=== PATIENT | male | born 1990 | race Two or more races ===

== ENCOUNTER → 2020-02-11 17:31 | Outpatient (CLI) | payer OTHER | END | disposition home or self-care (01) | LOC: LAB 17:31 → RAD 17:31 | PROVIDERS: ATTEND Radiology Diagnostic Radiology | DX: M25.552 Pain in left hip (principal); M25.531 Pain in right wrist ==

== ENCOUNTER → 2023-01-25 | Outpatient (CLI) | payer OTHER | END | disposition home or self-care (01) | LOC: RAD 14:47 | PROVIDERS: ATTEND Radiology Diagnostic Radiology | DX: M79.671 Pain in right foot (principal) ==